=== PATIENT | male | born 2000 | race Two or more races ===

== ENCOUNTER 2023-01-22 10:34 | Emergency (ER) | payer SELFPAY ==
[~2023-01-22] VITALS: Ht 160 cm; Wt 63.0 kg
[2023-01-22 10:50] VITALS: BP 126/65; PULSE 60; RESP 18; O2SAT 100
== END 2023-01-22 11:20 | disposition left against medical advice (07) ==
LOC: ER 10:34
DX: R51.9 Headache, unspecified (principal); Z53.21 Procedure and treatment not carried out due to patient leaving prior to being seen by health care provider